=== PATIENT | female | born 1980 | race African-American/Black ===

== ENCOUNTER 2017-09-03 23:40 | Emergency (ER) | payer MEDICAID, OTHER ==
[~2017-09-03] VITALS: Ht 170.2 cm; Wt 82.0 kg
[~2017-09-03 23:40] MED LIST: ALBU18HF2; PROVENTIL
[2017-09-04] MEDS ORDERED: IPRATROPIUM/ALBUTEROL 0.5-3(2.5)MG/3ML NEB HHN ONE ×2 (01:30→04:00)
[2017-09-04] MEDS ORDERED: IPRATROPIUM BROMIDE (0.02%) 0.5MG/2.5ML NEB HHN STA (01:34)
[2017-09-04] MEDS ORDERED: MAGNESIUM 2 G PREMIX 50 ML IV STA (01:34)
[2017-09-04] MEDS ORDERED: METHYLPREDNISOLONE SOD SUCC 125 MG/2 ML VIAL IV STA (01:34)
[2017-09-04] MEDS ORDERED: ALBUTEROL (0.083%) 2.5MG/3ML NEB HHN STA (01:34)
[2017-09-04 01:39] LABS: BASOPHILS % 0.6 % (0.0-2.0); EOSINOPHILS % 2.9 % (0.0-5.0); HEMATOCRIT. 37.8 % (36.0-48.0); HEMOGLOBIN. 12.3 g/dL (12.0-16.0); LYMPHOCYTES % 13.1 % (20.0-50.0); MEAN CORPUSCULAR HEMOGLOBIN 26.3 pg (28.0-32.0); MEAN CORPUSCULAR VOLUME 80.5 fL (81.0-99.0); MEAN PLATELET VOLUME 8.3 fl (7.4-10.4); MONOCYTES % 9.7 % (2.0-8.0); NEUTROPHILS % 73.7 % (40.0-76.0); PLATELET 224 x1000/uL (130-400); RED BLOOD CELL COUNT 4.69 mill/uL (4.2-5.4); RED CELL DISTRIBUTION WIDTH 13.6 % (11.6-14.6)
[2017-09-04 01:45] LABS: PROTHROMBIN TIME 9.9 sec (9.4-11.6)
[2017-09-04 01:55] LABS: CHLORIDE 107 mEq/L (98-107); TROPONIN I < 0.02 ng/mL (0.00-0.04)
[2017-09-04 05:45] VITALS: BP 120/75
== END 2017-09-04 06:12 | disposition home or self-care (01) ==
LOC: ER 23:40
DX: J45.909 Unspecified asthma, uncomplicated (principal); R79.1 Abnormal coagulation profile
CPT/HCPCS: 36415; 71045; 80053; 83880; 84484; 85025; 85610; 93005; 94640; 94644; 96365; 96375; 99285; J2930; J3475; J7611; J7620; Z7610

== ENCOUNTER 2019-03-14 10:07 | Inpatient (IN) | payer MEDICAID ==
[~2019-03-14] VITALS: Ht 167.6 cm; Wt 89.8 kg
[2019-03-14] MEDS ORDERED: PREN1TAB78 MT (10:37)
[2019-03-14] MEDS ORDERED: FOLI-43 MT (10:39)
[2019-03-14] MEDS ORDERED: FERR325T6 MT (10:39)
[2019-03-14] MEDS ORDERED: METHYLERGONOVINE MALEATE 0.2 MG/ML IM PRN (11:15)
[2019-03-14] MEDS ORDERED: LACTATED RINGERS 1,000 ML IV SCH (11:15)
[2019-03-14] MEDS ORDERED: CARBOPROST TROMETHAMINE 250 MCG/ML AMPUL IM PRN (11:15)
[2019-03-14] MEDS ORDERED: NALOXONE HCL 0.4 MG/ML 1ML VIAL IM PRN (11:15)
[2019-03-14] MEDS ORDERED: LIDOCAINE HCL 1% 20ML VIAL (Pyxis) INJ INFIL SCH (11:15)
[2019-03-14] MEDS ORDERED: BUTORPHANOL TARTRATE 2 MG/ML VIAL IV PRN (11:15)
[2019-03-14 11:54] LABS: INR 0.9; PROTHROMBIN TIME 9.3 sec (9.6-11.0)
[2019-03-14 11:58] LABS: CLARITY URINE CLEAR (CLEAR); COLOR URINE YELLOW (YELLOW); KETONES URINE NEGATIVE (NEGATIVE); LEUKOCYTE ESTERASE URINE NEGATIVE (NEGATIVE); NITRITE URINE NEGATIVE (NEGATIVE); OCCULT BLOOD URINE NEGATIVE (NEGATIVE); PH URINE 7.5 (4.5-8.0); PROTEIN URINE NEGATIVE (NEGATIVE); SPECIFIC GRAVITY URINE 1.012 (1.005-1.030)
[2019-03-14] MEDS ORDERED: PENICILLIN G POTASSIUM 5 MMU in DEXT 5% WATER 100 ML IV ONE (12:00)
[2019-03-14] MEDS: DEXT 5%/LR + PITOCIN 20UNITS/L 1,000 ML IV SCH ×2 (12:05→15:19)
[2019-03-14 12:17] LABS: *AMPHETAMINES SCREEN URINE NEGATIVE (NEGATIVE); *BARBITURATES SCREEN URINE NEGATIVE (NEGATIVE); *BENZODIAZEPINES SCREEN URINE NEGATIVE (NEGATIVE); *COCAINE SCREEN URINE NEGATIVE (NEGATIVE)
[2019-03-14 12:18] LABS: CANNABINOID URINE SCREEN NEGATIVE (NEGATIVE); METHADONE URINE SCREEN NEGATIVE (NEGATIVE); OPIATES URINE SCREEN NEGATIVE (NEGATIVE); PHENCYCLIDINE URINE SCREEN NEGATIVE (NEGATIVE)
[2019-03-14 12:27] LABS: HEPATITIS B SURFACE ANTIGEN NEGATIVE
[2019-03-14 14:12] LABS: BASOPHILS % 0.6 % (0.0-2.0); EOSINOPHILS % 1.3 % (0.0-5.0); HEMATOCRIT. 33.2 % (36.0-48.0); HEMOGLOBIN. 11.4 g/dL (12.0-16.0); LYMPHOCYTES % 10.5 % (20.0-50.0); MEAN CORPUSCULAR HEMOGLOBIN 27.6 pg (28.0-32.0); MEAN CORPUSCULAR VOLUME 80.3 fL (81.0-99.0); MONOCYTES % 7.4 % (2.0-8.0); NEUTROPHILS % 80.2 % (40.0-76.0); PLATELET 147 x1000/uL (130-400); RED BLOOD CELL COUNT 4.13 mill/uL (4.2-5.4)
[2019-03-14] MEDS ORDERED: ROPIVACAINE HCL/PF EPIDURAL 200 ML EPI ONE (14:12)
[2019-03-14] MEDS ORDERED: ROPIVACAINE HCL 10MG/ML 20 ML VIAL EPI ONE (14:15)
[2019-03-14] MEDS ORDERED: NALOXONE HCL 0.4 MG/ML 1ML VIAL ONE (14:31)
[2019-03-14] MEDS ORDERED: DEXT 5%/LR + PITOCIN 20UNITS/L 1,000 ML IV SCH (14:47)
[2019-03-14] MEDS ORDERED: LANOLIN OINT 7GM TUBE TOP PRN (15:00)
[2019-03-14] MEDS ORDERED: IBUPROFEN 400MG TABLET PO PRN (15:00)
[2019-03-14] MEDS ORDERED: BENZOCAINE/LANOLIN/ALOE VERA SPRAY TOP PRN (15:00)
[2019-03-14] MEDS ORDERED: HEMORRHOIDAL SUPP PR PRN (15:00)
[2019-03-14] MEDS ORDERED: TETANUS, DIPHTHERIA, PERTUSSIS VAC/PF 0.5ML (>7YR OLD) IM ONE (15:00)
[2019-03-14] MEDS ORDERED: DIPHENHYDRAMINE 25MG CAPSULE PO PRN (15:00)
[2019-03-14] MEDS ORDERED: BISACODYL 10MG SUPP PR PRN (15:00)
[2019-03-14] MEDS ORDERED: GLYCERIN/WITCH HAZEL LEAF MEDICATED PAD TOP PRN (15:00)
[2019-03-14] MEDS: IBUPROFEN 800MG TABLET PO PRN (15:33)
[2019-03-14] MEDS ORDERED: PENICILLIN G POTASSIUM 2.5 MMU in DEXTROSE 5% WATER 50 ML IV SCH (16:00)
[2019-03-14 16:25] VITALS: BP 116/65
[2019-03-14] MEDS: SIMETHICONE 80MG TABLET CHEW PO SCH ×2 (17:47→21:32)
[2019-03-14 20:00] VITALS: BP 113/70
[2019-03-14] MEDS: DOCUSATE SODIUM 100MG CAPSULE PO SCH (21:32)
[2019-03-14] MEDS ORDERED: ACETAMINOPHEN WITH CODEINE 300/30MG TABLET PO PRN (22:00)
[2019-03-15] VITALS: BP 120/61
[2019-03-15] MEDS ORDERED: MEDROXYPROGESTERONE ACETATE 150MG/ML VIAL IM SCH (07:00)
[2019-03-15 07:20] LABS: BASOPHILS % 0.4 % (0.0-2.0); HEMATOCRIT. 26.4 % (36.0-48.0); LYMPHOCYTES % 15.3 % (20.0-50.0); MEAN CORPUSCULAR HEMOGLOBIN 27.7 pg (28.0-32.0); MEAN CORPUSCULAR VOLUME 81.3 fL (81.0-99.0); MEAN PLATELET VOLUME 10.5 fl (7.4-10.4); MONOCYTES % 8.1 % (2.0-8.0); NEUTROPHILS % 73.2 % (40.0-76.0); PLATELET 144 x1000/uL (130-400); RED BLOOD CELL COUNT 3.24 mill/uL (4.2-5.4); RED CELL DISTRIBUTION WIDTH 14.4 % (11.6-14.6)
[2019-03-15 07:28] VITALS: BP 101/60
[2019-03-15] MEDS: IBUPROFEN 800MG TABLET PO PRN ×2 (08:20→19:38)
[2019-03-15] MEDS: SIMETHICONE 80MG TABLET CHEW PO SCH ×4 (08:20→21:11)
[2019-03-15] MEDS: FERROUS SULFATE 325MG TABLET PO SCH ×3 (08:20→18:03)
[2019-03-15] MEDS: PRENATAL VIT/FE FUMARATE/FA TABLET PO SCH (08:20)
[2019-03-15 16:14] VITALS: BP 107/68
[2019-03-15 19:30] VITALS: BP 122/78
[2019-03-15] MEDS: DOCUSATE SODIUM 100MG CAPSULE PO SCH (21:11)
[2019-03-15 23:30] VITALS: BP 123/78
[2019-03-16 08:32] VITALS: BP 119/71
[2019-03-16 09:51] VITALS: BP 119/71
[2019-03-16] MEDS: IBUPROFEN 800MG TABLET PO PRN (09:51)
[2019-03-16] MEDS: PRENATAL VIT/FE FUMARATE/FA TABLET PO SCH (09:51)
[2019-03-16] MEDS: FERROUS SULFATE 325MG TABLET PO SCH (09:51)
== END 2019-03-16 12:23 | disposition home or self-care (01) | DRG 560 ==
LOC: 8 EST LDRP 10:07 → OBSVTOIN 14:57 → 8EST 16:20
PROVIDERS: ADMIT Specialist; ATTEND Specialist
PROC: 10E0XZZ Delivery of Products of Conception, External Approach (ICD-10-PCS; principal; 2019-03-14)
PROC: 3E0R3BZ Introduction of Anesthetic Agent into Spinal Canal, Percutaneous Approach (ICD-10-PCS; 2019-03-14)
PROC: 00HU33Z Insertion of Infusion Device into Spinal Canal, Percutaneous Approach (ICD-10-PCS; 2019-03-14)
DX: O99.824 Streptococcus B carrier state complicating childbirth (principal); F12.10 Cannabis abuse, uncomplicated; O99.324 Drug use complicating childbirth; O99.52 Diseases of the respiratory system complicating childbirth; J45.909 Unspecified asthma, uncomplicated; Z79.899 Other long term (current) drug therapy; O09.523 Supervision of elderly multigravida, third trimester; Z37.0 Single live birth; Z3A.39 39 weeks gestation of pregnancy
CPT/HCPCS: 36415; 80305; 81003; 86592; 86703; 86762; 86850; 86900; 87340; 99281; G0378; J0595; J1050; J2310; J2540; J2590; J7060

== ENCOUNTER 2021-09-18 00:22 | Emergency (ER) | payer OTHER ==
[~2021-09-18] VITALS: Ht 170.2 cm; Wt 87.0 kg
[~2021-09-18 00:22] MED LIST changes: +FERR325T6 MT; +FOLI-43 MT; +PREN1TAB78 MT
[2021-09-18] MEDS ORDERED: ALBUTEROL (0.083%) 2.5MG/3ML NEB HHN STA ×3 (00:34→04:21)
[2021-09-18] MEDS ORDERED: IPRATROPIUM BROMIDE (0.02%) 0.5MG/2.5ML NEB HHN STA ×3 (00:34→04:21)
[2021-09-18] MEDS ORDERED: METHYLPREDNISOLONE SOD SUCC 125 MG/2 ML VIAL IM STA (00:34)
[2021-09-18] MEDS ORDERED: MAGNESIUM 2 G PREMIX 50 ML IV ONE (01:30)
[2021-09-18] MEDS ORDERED: EPINEPHRINE 1:1000 1 MG/ML AMP IM ONE (01:45)
[2021-09-18] MEDS ORDERED: TERBUTALINE SULFATE 1MG/ML VIAL SUBCUT ONE (02:15)
[2021-09-18 03:11] LABS: BASOPHILS % 0.3 % (0.0-2.0); CHLORIDE 104 mEq/L (98-107); EOSINOPHILS % 2.8 % (0.0-5.0); HEMATOCRIT. 37.9 % (36.0-48.0); HEMOGLOBIN. 12.3 g/dL (12.0-16.0); MEAN CORPUSCULAR HEMOGLOBIN 26.1 pg (28.0-32.0); MEAN CORPUSCULAR VOLUME 80.1 fL (81.0-99.0); MEAN PLATELET VOLUME 8.8 fl (7.4-10.4); MONOCYTES % 5.4 % (2.0-8.0); NEUTROPHILS % 74.5 % (40.0-76.0); PLATELET 238 x1000/uL (130-400); RED BLOOD CELL COUNT 4.73 mill/uL (4.2-5.4); RED CELL DISTRIBUTION WIDTH 14.1 % (11.6-14.6)
[2021-09-18] MEDS ORDERED: POTASSIUM CHLORIDE 20MEQ/PACKET PO ONE (03:45)
[2021-09-18] MEDS ORDERED: LORAZEPAM 1MG TABLET PO ONE (10:00)
[2021-09-18 11:48] VITALS: BP 114/73
== END 2021-09-18 12:15 | disposition short-term general hospital (02) ==
LOC: ER 00:22
DX: J45.901 Unspecified asthma with (acute) exacerbation (principal); J45.902 Unspecified asthma with status asthmaticus; F17.210 Nicotine dependence, cigarettes, uncomplicated
CPT/HCPCS: 36415; 71045; 80053; 83880; 84484; 85025; 87426; 93005; 94640; 94660; 96365; 96372; 99285; J2930; J3105; J3475; J3490; Z7610